=== PATIENT | female | born 1955 | race Caucasian/White ===

== ENCOUNTER → 2020-12-13 10:45 | Outpatient (CLI) | payer OTHER ==
--- NOTE | ~2020-12-13 | EC ---
PATIENT:CYNTHIA SOMMER DATE OF SERVICE: 12/13/20 SEX: F MEDICAL RECORD: [id number] DATE OF : 57 LOCATION:D.[facility]ERLY [facility] AGE OF PATIENT: 65 ADMISSION DATE: 12/13/20 REFERRING PHYSICIAN: INTERPRETING PHYSICIAN: HAMMAD NUNN MD ECHOCARDIOGRAM REPORT ECHO CHARGES 4 ECHO COMPLETE Date: 12/13/20 CLINICAL DIAGNOSIS: PALPITATIONS/HEART MURMUR HX OF MVP/CAD/CVA ECHOCARDIOGRAPHIC MEASUREMENTS (adult normal given) AC root (d.<3.7cm) 2.9 cm LV Septum d (<1.2 cm> 1.0 cm Valve Excursion 1.4 cm LV Septum (systole) 1.2 cm Left Atria (s.<4.0cm> 2.8 cm LVPW d(<1.2cm) 1.1 cm RV (d.<2.3cm) 2.5 cm LVPW (sytole) 1.4 cm LV diastole(<5.6CM) 3.6 cm MV E-F(>70mm/sec) cm LV systole 2.0 cm LVOT Diameter 1.9 cm MV exc.(>10mm) 1.5 cm Est.ejection fraction (50-75%) % DOPPLER: LVIT cm/sec A 76.0 cm/sec E 63.0 cm/sec LA cm/sec RVSP 27 mmHg LVOT 100 cm/sec AOP1/2T m/s Asc. Ao 128 cm/sec RVOT cm/sec RA cm/sec PA 107 cm/sec AV Gradient Peak 6.52 mmHg AV Mean 3.50 mmHg AV Area 2.3 cm MV Gradient Peak 3.79 mmHg MV Mean 1.34 mmHg MV Area cm COMMENTS: Heel Curver: 2 ROSAS PEGUERO Circulating Process Inspector: 3 Dr. Blanca TAPE# PACS Pericardial Effusion N DATE OF SERVICE: Adequate 2D, color-flow imaging, spectral Doppler, and M-Mode No LVH. LV internal dimension is normal. Wall motion is normal. EF is greater than or equal to 55%. Aortic valve is tricuspid. No evidence of stenosis by Doppler interrogation. Left atrium is normal at 3.8 cm. Mitral valve shows no prolapse. Trace MR. Right side is grossly normal. Trace TR. TRANSINT:[id number] Voice Confirmation ID: [id number] DOCUMENT ID: [id number] ECHOCARDIOGRAM REPORT [id number] CYNTHIA SOMMER GREGORY A MD CC: [id number] DICTATION DATE: 12/15/20 0807 AGILE PROJECT MANAGER: 12/15/20 1143 DEP CLI 12/13/20 [place] [id number]
--- NOTE | 2020-12-14 07:59 | ST ---
PATIENT:CYNTHIA SOMMER MEDICAL RECORD: [id number] SEX: F LOCATION:[facility] ORDER #: ADMISSION DATE: 12/13/20 AGE OF PATIENT: 65 REFERRING PHYSICIAN: INTERPRETING PHYSICIAN: HAMMAD NUNN MD DATE OF SERVICE: 12/13/2020 NUCLEAR STRESS TEST GATED: Normal. Normal wall motion. Normal wall thickening. EF is calculated at 75%. SPECT IMAGING: SPECT imaging was performed. 1. Short axis view shows a fixed defect along the inferior base without significant reversibility. 2. Horizontal axis: Horizontal axis confirms a fixed anterior basilar defect. 3. Vertical axis: Vertical axis shows good uptake along the lateral wall and septum. FINAL IMPRESSION: 1. Normal gated, normal wall motion, normal EF 75%. 2. Abnormal SPECT imaging with a fixed anterior basilar defect. FINAL IMPRESSION: This scan is consistent with known history of coronary artery disease with a fixed anterior basilar defect. No significant reversibility seen here. LV function remains normal. Continue medical management and risk factor modification is recommended. TRANSINT:[id number] Voice Confirmation ID: [id number] DOCUMENT ID: [id number] HAMMAD NUNN MD at 0759 CC: [id number] DICTATION DATE: 12/13/20 1640 FERN CUTTER: 12/14/20 0031 DEP CLI 12/13/20 [place] [id number] [place] [address]
== END | disposition home or self-care (01) ==
LOC: D.HCCECHO 10:45
PROVIDERS: ATTEND Internal Medicine Interventional Cardiology
DX: R00.2 Palpitations (principal)